=== PATIENT | female | born 2000 | race Caucasian/White ===

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

== ENCOUNTER 2024-01-13 00:09 | Outpatient (CLI) | payer MEDICAID ==
[~2024-01-13] VITALS: Ht 177.8 cm; Wt 100.9 kg
[~2024-01-13 00:09] MED LIST changes: +IBU600 MG PO; +NATURAL IRON65 MG; +PRENATAL TABLET PO; +ZOFRAN ODT4 MG PO
[2024-01-13] MEDS ORDERED: LR 1,000 ML IV PRN (00:30)
[2024-01-13 00:50] VITALS: BP 134/70; PULSE 83; TEMP 98.3
--- NOTE | 2024-01-13 00:58 | NUR ---
DR OLIVARES NOTIFIED OF PT PRESENTS HERE WITH CTX'S SINCE 2229, SVE 07/08-/-2, DENIES LEAKING OF BLEEDING. VS STABLE, FHR CATEGORY 1. RATES PAIN AT 2-3. ORDERS TO DC TO HOME NOTED.
== END 2024-01-13 01:05 | disposition home or self-care (01) ==
LOC: LDRO 00:09 → LDR 00:15 → LDRO 01:05
DX: O47.9 False labor, unspecified (principal); Z3A.00 Weeks of gestation of pregnancy not specified
CPT/HCPCS: OP